=== PATIENT | female | born 1940 | race Caucasian/White ===

== ENCOUNTER → 2018-05-30 | Outpatient (CLI) | payer OTHER | LOC: M.RAD 13:19 | DX: M85.80 Other specified disorders of bone density and structure, unspecified site (principal); Z78.0 Asymptomatic menopausal state ==

== ENCOUNTER 2020-04-16 19:58 | Emergency (ER) | payer MEDICARE ==
[~2020-04-16] VITALS: Ht 152.4 cm; Wt 65.3 kg
[2020-04-16] MEDS ORDERED: FISH OIL 1,0001 EAC9 PO (20:11)
[2020-04-16] MEDS ORDERED: CALCIUM500 MG PO (20:11)
[2020-04-16] MEDS ORDERED: LISINOPRIL-HCT1 EACH PO (20:11)
[2020-04-16] MEDS ORDERED: LIPITOR40 MG PO (20:11)
[2020-04-16] MEDS ORDERED: VITAMIN E1000 UNIT PO (20:12)
[2020-04-16] MEDS ORDERED: DOXYCYCLINE 10100 MG PO (20:39)
[2020-04-16] MEDS ORDERED: APAP W/CODEINE1 TA2 PO (20:41)
[2020-04-16 20:57] VITALS: BP 135/51
== END 2020-04-16 20:58 | disposition home or self-care (01) ==
LOC: M.ERS 19:58
DX: L03.113 Cellulitis of right upper limb (principal); L02.511 Cutaneous abscess of right hand; M25.421 Effusion, right elbow; Z98.51 Tubal ligation status; Z90.710 Acquired absence of both cervix and uterus; Z90.49 Acquired absence of other specified parts of digestive tract; Z90.89 Acquired absence of other organs